=== PATIENT | female | born 1990 | race African-American/Black ===

== ENCOUNTER 2016-07-21 13:34 | Emergency (ER) | payer MEDICAID ==
[~2016-07-21] VITALS: Ht 175.3 cm; Wt 73.0 kg
[2016-07-21 13:50] VITALS: BP 113/57
== END 2016-07-21 16:21 | disposition home or self-care (01) ==
LOC: ER 14:24
DX: R49.0 Dysphonia (principal); Z88.0 Allergy status to penicillin; Z88.1 Allergy status to other antibiotic agents; Z98.890 Other specified postprocedural states
CPT/HCPCS: 99283